=== PATIENT | female | born 1975 | race Caucasian/White ===

== ENCOUNTER 2016-06-27 18:33 | Emergency (ER) | payer OTHER ==
[2016-06-27] MEDS ORDERED: ONDANSETRON HCL/PF 4 MG/ 2ML VIAL ONE (19:32)
[2016-06-27] MEDS ORDERED: ONDANSETRON HCL/PF 4 MG/ 2ML VIAL IM ONE (19:33)
[2016-06-27] MEDS ORDERED: CYCLOBENZAPRINE HCL 5 MG TABLET PO ONE (19:37)
[2016-06-27] MEDS ORDERED: IBUPROFEN 400 MG TABLET PO ONE (19:37)
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
[2016-06-27 20:35] VITALS: BP 143/88
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
== END 2016-06-27 20:00 | disposition home or self-care (01) ==
LOC: ED 18:33
DX: S16.1XXA Strain of muscle, fascia and tendon at neck level, initial encounter (principal); V43.52XA Car driver injured in collision with other type car in traffic accident, initial encounter; Y92.414 Local residential or business street as the place of occurrence of the external cause; Y93.9 Activity, unspecified; Y99.9 Unspecified external cause status
CPT/HCPCS: J2405 ×2; 70450; 70486; 72125; 96372; 99284